=== PATIENT | male | born 1985 | race Caucasian/White ===

== ENCOUNTER 2017-02-05 22:48 | Emergency (ER) | payer SELFPAY ==
--- NOTE | 2017-02-07 22:22 | ED CLINICAL REPORT ---
Clinical Report - Physicians/Mid Levels [facility] [address] [place] [address] 02/05/2017 22:50 Patient: MARY HENDERSON Time Seen: 23:30 Feb 05 2017. Arrived- By private vehicle. Historian- patient. CPT: ER phys charges level 3 (#[id number]). HISTORY OF PRESENT ILLNESS Chief Complaint: RIGHT TESTICULAR PAIN. Is still present. The problem is described as moderate. The patient has had testicular pain. Sexual history is noncontributory. Similar symptoms previously: None. Recent medical care: Not recently seen/assessed. REVIEW OF SYSTEMS No fever, chills, flank pain, hematuria or abdominal pain. No vomiting, joint pain or skin rash. All systems otherwise negative, except as recorded above. PAST HISTORY No history of epididymitis or prostatitis. Problems: no known problems. Additional Surgeries: no known surgeries. Medications: None. Allergies: No Known Drug Allergy. SOCIAL HISTORY Heavy tobacco smoker (cigarette)- 1 pack per day. History of drug use: methamphetamines. No alcohol use. ADDITIONAL NOTES The nursing notes have been reviewed. PHYSICAL EXAM Vital Signs: 02/05/2017 23:05 BP: 133/73. HR: 105. RR: 16. O2 saturation: 98%. Temp: 99.3 F. Pain level now: 10/10. Appearance: Alert. Appears to be in pain. Patient in moderate distress. : Moderate right-sided scrotal swelling with tenderness. Moderate tenderness of the right testicle. Skin: Skin warm. No rash. Neuro: Oriented X 3. PROGRESS AND PROCEDURES Course of Care: 00:45 02/06/17. US arrived to do exam and patient refused exam and decided he was going to leave. I asked why , he would not respond. Put on his clothes and walked out of the ER. Pt would not wait to hear the AMA warnings. Patient/family counseled. CLINICAL IMPRESSION Right testicular pain and swelling unclear etiology Left AMA. (Electronically signed by Kirit Vásquez MD 02/07/2017 13:01)
--- NOTE | 2017-02-07 22:22 | ED MED RECONCILIATION SUMMARY ---
Patient: MARY HENDERSON Medication Reconciliation Report [facility] VisitID: [id number] [address] [place] [address] 31y, M Registration Date/Time: 02/05/2017 Weight: 63.5 kg Height/Length: 71 in. BMI: 19.5 ALLERGIES: No Known Drug Allergy The patient's Home Medications are listed below: NONE. The source(s) of the original Home Medication information: patient The following Medications were given to the patient in the Emergency Department: None. The following Medications were prescribed to the patient: None.
--- NOTE | 2017-02-07 22:22 | ED MED RECONCILIATION SUMMARY ---
Patient: MARY HENDERSON Medication Reconciliation Report [facility] VisitID: [id number] [address] [place] [address] 31y, M Registration Date/Time: 02/05/2017 Weight: 63.5 kg Height/Length: 71 in. BMI: 19.5 ALLERGIES: No Known Drug Allergy The patient's Home Medications are listed below: NONE. The source(s) of the original Home Medication information: patient The following Medications were given to the patient in the Emergency Department: None. The following Medications were prescribed to the patient: None.
--- NOTE | 2017-02-07 22:22 | ED ORDER SUMMARY ---
..... Patient: MARY HENDERSON OrderSheet [facility] VisitID: [id number] [address] [place] [address] 31y, M Registration Date/Time: 02/05/2017 ORDER SHEET Weight: 63.5 kg (stated) Allergies: No Known Drug Allergy GENERAL ORDERS: UA-Culture if indicated Urgent (23:28 02/05/2017 Isabel DanielNParth verbal order read back to Andres BARRETT) (Ack 23:39 Kendrick) (23:46 DDavis R.N.) Urine Drug Screen Urgent (23:29 02/05/2017 Isabel Powell verbal order read back to Andres BARRETT) (Ack 23:39 Kendrick) (23:46 DDavis R.N.) US Scrotum/Testicular (right side) Urgent (23:34 02/05/2017 Andres BARRETT) (Ack 23:39 Clarkeimagilma) (Cancelled: Patient Refusal0:48 Venkataekimana) MEDICATION ORDERS: IV FLUIDS: ORDER SHEET NOTES: [Electronically signed by Kirit Vásquez MD (13:01 02/07/2017)] [Electronically signed by Chadd Triana R.N. (22:22 02/07/2017)] [Electronically locked/signed by Chadd Triana R.N. (22:22 02/07/2017)]
--- NOTE | 2017-02-07 22:22 | ED MAR SUMMARY ---
..... Medication Administration Record [facility] [address], [place] [id number] Patient: MARY HENDERSON Visit ID: [id number] 31y, M Weight: 63.5 kg Height/Length: 71 in BMI: 19.5 ALLERGIES: No Known Drug Allergy
--- NOTE | 2017-02-07 22:22 | ED MAR SUMMARY ---
..... Medication Administration Record [facility] [address] [place], [place] [id number] Patient: MARY HENDERSON Visit ID: [id number] 31y, M Weight: 63.5 kg Height/Length: 71 in BMI: 19.5 ALLERGIES: No Known Drug Allergy
--- NOTE | 2017-02-07 22:22 | ED DISCHARGE INSTRUCTIONS ---
Patient: MARY HENDERSON General Instructions [facility] VisitID: [id number] [address] [place] [address] 31y, M Registration Date/Time: 02/05/2017 Right testicular pain and swelling unclear etiology Left AMA. (Electronically signed by Kirit Vásquez MD 02/07/2017 13:01)
--- NOTE | 2017-02-07 22:22 | ED DISCHARGE INSTRUCTIONS ---
Patient: MARY HENDERSON General Instructions [facility] VisitID: [id number] [address] [place] [address] 31y, M Registration Date/Time: 02/05/2017 Right testicular pain and swelling unclear etiology Left AMA. (Electronically signed by Kirit Vásquez MD 02/07/2017 13:01)
--- NOTE | 2017-02-07 22:22 | ED NURSING NOTES ---
Clinical Report - Nurses [facility] [address] [place] [address] 02/05/2017 22:50 Patient: MARY HENDERSON TRIAGE Triage time 23:00 Feb 05 2017. Acuity: LEVEL 3. Chief Complaint: URINARY RETENTION and TESTICULAR PAIN. Alert. DILIP COMA SCORE: Dilip Coma Scale: 15- eyes open spontaneously (4); best verbal response- oriented x 4 (5); best motor response- obeys commands (6). --23:21 Lam Bailye R.N. 23:05 02/05/17. BP: 133/73. HR: 105. RR: 16. O2 saturation: 98% on room air. Temp: 99.3 F (oral). Pain level now: 10/10. Additional comments: Scrotal Pain. --23:21 Lam Bailey R.N. Weight: 63.5 kg stated. Height/Length: 71 inches Per Patient. BMI: 19.5. --23:15 Lam Bailey R.N. Medications None. --23:19 Lam Bailey R.N. Medication/allergy information source: the patient. --23:21 Lam Bailey R.N. Allergies No Known Drug Allergy. --23:19 Lam Bailey R.N. History Arrived by private vehicle. Historian: patient. Accompanied by family. ( (R) Testicular Pain with urinary retention). This started yesterday. He has had testicular pain, involving the right testicle. Treatment PHARMACY AFFAIRS ASSISTANT: None. PAST MEDICAL HX: Negative. Immunizations: status is unknown. SURGERY HX: No history of previous surgery. SOCIAL HX: Heavy tobacco smoker (cigarette)- less than 1 pack per day. History of drug use: methamphetamines, marijuana. (last used meth earlier today). No alcohol use. No infectious disease exposure. ABUSE ASSESSMENT: No report of abuse. FALL RISK ASSESSMENT: Fall risk assessment completed. No fall risk identified. NUTRITIONAL RISK ASSESSMENT: The nutritional risk assessment revealed no deficiencies. FUNCTIONAL ASSESSMENT: Functional assessment: no impairments noted. LEARNING NEEDS ASSESSMENT: The learning needs assessment revealed no barriers. SKIN INTEGRITY ASSESSMENT: Skin integrity risk assessment completed. No skin integrity risk identified. --23:21 Lam Bailey R.N. PROBLEMS: no known problems. ADDITIONAL SURGERIES: no known surgeries. Interventions ID band on patient. To treatment room. --23:21 Lam Bailey R.N. PHYSICAL ASSESSMENT Ambulatory to room. GENERAL / NEURO / PSYCH: Alert. Oriented X 4. HEENT: Mucous membranes are pink. RESPIRATORY: Respirations not labored. CVS: Cardiac rhythm: sinus tachycardia. Capillary refill less than 2 seconds. GI / : Abdomen soft. SKIN: Skin is warm and dry. --23:22 Lam Bailey R.N. NURSING PROGRESS NOTES Monitoring of patient in place. Patient gowned. Reassurance given. Call light placed in reach. Side rails up x 1. Bed placed in lowest position. Brakes of bed on. Patient placed in chair. Brakes of chair on. Patient ready for evaluation- chart flagged and ED physician notified. --23:22 Lam Bailey R.N. ( I was notified by Doctor Vásquez that the patient was getting dressed and preparing to leave when the chemical lab technician arrived from the ultrasound exam. Dr Vásquez spoke with the patient, but states that the patient refused additional testing and refused prescription pain medications. The patient left without receiving paperwork and without signing an AMA form. The patient had already left when I was informed of the patient's situation and departure.). --00:59 Chadd Triana R.N. DISPOSITION / DISCHARGE Departure time: 00:50. Condition at departure: unchanged. The patient eloped and the patient left prior to discharge education being provided. The patient left the Emergency Department against medical advice and without completion of treatment; patient was accompanied by a top icer. The patient appears to be oriented x4 and uncooperative. The patient stated is leaving the ED due to the long waiting time. Notified the ED physician and charge nurse of patient departure. Patient left without signing form prior to leaving. He left the Emergency Department ambulatory and via private vehicle. ( Dr. Vásquez and the chemical lab technician were the only point of contact with the patient at the time of his departure.). --01:01 Chadd Triaan R.N. Locked/Released at 02/07/2017 22:22 by Chadd Triana R.N.
--- NOTE | 2017-02-07 22:22 | ED NURSING NOTES ---
Clinical Report - Nurses [facility] [address] [place] [address] 02/05/2017 22:50 Patient: MARY HENDERSON TRIAGE Triage time 23:00 Feb 05 2017. Acuity: LEVEL 3. Chief Complaint: URINARY RETENTION and TESTICULAR PAIN. Alert. DILIP COMA SCORE: Dilip Coma Scale: 15- eyes open spontaneously (4); best verbal response- oriented x 4 (5); best motor response- obeys commands (6). --23:21 Lam Bailey R.N. 23:05 02/05/17. BP: 133/73. HR: 105. RR: 16. O2 saturation: 98% on room air. Temp: 99.3 F (oral). Pain level now: 10/10. Additional comments: Scrotal Pain. --23:21 Lam Bailey R.N. Weight: 63.5 kg stated. Height/Length: 71 inches Per Patient. BMI: 19.5. --23:15 Lam Bailey R.N. Medications None. --23:19 Lam Bailey R.N. Medication/allergy information source: the patient. --23:21 Lam Bailey R.N. Allergies No Known Drug Allergy. --23:19 Lam Bailey R.N. History Arrived by private vehicle. Historian: patient. Accompanied by family. ( (R) Testicular Pain with urinary retention). This started yesterday. He has had testicular pain, involving the right testicle. Treatment BENDING MACHINE OPERATOR: None. PAST MEDICAL HX: Negative. Immunizations: status is unknown. SURGERY HX: No history of previous surgery. SOCIAL HX: Heavy tobacco smoker (cigarette)- less than 1 pack per day. History of drug use: methamphetamines, marijuana. (last used meth earlier today). No alcohol use. No infectious disease exposure. ABUSE ASSESSMENT: No report of abuse. FALL RISK ASSESSMENT: Fall risk assessment completed. No fall risk identified. NUTRITIONAL RISK ASSESSMENT: The nutritional risk assessment revealed no deficiencies. FUNCTIONAL ASSESSMENT: Functional assessment: no impairments noted. LEARNING NEEDS ASSESSMENT: The learning needs assessment revealed no barriers. SKIN INTEGRITY ASSESSMENT: Skin integrity risk assessment completed. No skin integrity risk identified. --23:21 Lam Bailey R.N. PROBLEMS: no known problems. ADDITIONAL SURGERIES: no known surgeries. Interventions ID band on patient. To treatment room. --23:21 Lam Bailey R.N. PHYSICAL ASSESSMENT Ambulatory to room. GENERAL / NEURO / PSYCH: Alert. Oriented X 4. HEENT: Mucous membranes are pink. RESPIRATORY: Respirations not labored. CVS: Cardiac rhythm: sinus tachycardia. Capillary refill less than 2 seconds. GI / : Abdomen soft. SKIN: Skin is warm and dry. --23:22 Lam Bailey R.N. NURSING PROGRESS NOTES Monitoring of patient in place. Patient gowned. Reassurance given. Call light placed in reach. Side rails up x 1. Bed placed in lowest position. Brakes of bed on. Patient placed in chair. Brakes of chair on. Patient ready for evaluation- chart flagged and ED physician notified. --23:22 Lma Bailey R.N. ( I was notified by Doctor Vásquez that the patient was getting dressed and preparing to leave when the plant and maintenance technician arrived from the ultrasound exam. Dr Vásquez spoke with the patient, but states that the patient refused additional testing and refused prescription pain medications. The patient left without receiving paperwork and without signing an AMA form. The patient had already left when I was informed of the patient's situation and departure.). --00:59 Chadd Triana R.N. DISPOSITION / DISCHARGE Departure time: 00:50. Condition at departure: unchanged. The patient eloped and the patient left prior to discharge education being provided. The patient left the Emergency Department against medical advice and without completion of treatment; patient was accompanied by a dynamometer repairer. The patient appears to be oriented x4 and uncooperative. The patient stated is leaving the ED due to the long waiting time. Notified the ED physician and charge nurse of patient departure. Patient left without signing form prior to leaving. He left the Emergency Department ambulatory and via private vehicle. ( Dr. Vásquez and the plant and maintenance technician were the only point of contact with the patient at the time of his departure.). --01:01 Chadd Triana R.N. Locked/Released at 02/07/2017 22:22 by Chadd Triana R.N.
--- NOTE | 2017-02-07 22:22 | ED ORDER SUMMARY ---
..... Patient: MARY HENDERSON OrderSheet [facility] VisitID: [id number] [address] [place] [address] 31y, M Registration Date/Time: 02/05/2017 ORDER SHEET Weight: 63.5 kg (stated) Allergies: No Known Drug Allergy GENERAL ORDERS: UA-Culture if indicated Urgent (23:28 02/05/2017 Isabel DanielNParth verbal order read back to Andres BARRETT) (Ack 23:39 Kendrick) (23:46 DDavis R.N.) Urine Drug Screen Urgent (23:29 02/05/2017 Isabel Powell verbal order read back to Andres BARRETT) (Ack 23:39 Kendrick) (23:46 DDavis R.N.) US Scrotum/Testicular (right side) Urgent (23:34 02/05/2017 Andres BARRETT) (Ack 23:39 Clarkeimagilma) (Cancelled: Patient Refusal0:48 Venkataekimana) MEDICATION ORDERS: IV FLUIDS: ORDER SHEET NOTES: [Electronically signed by Kirit Vásquez MD (13:01 02/07/2017)] [Electronically signed by Chadd Triana R.N. (22:22 02/07/2017)] [Electronically locked/signed by Chadd Triana R.N. (22:22 02/07/2017)]
--- NOTE | 2017-02-07 22:22 | ED CLINICAL REPORT ---
Clinical Report - Physicians/Mid Levels [facility] [address] [place] [address] 02/05/2017 22:50 Patient: MARY HENDERSON Time Seen: 23:30 Feb 05 2017. Arrived- By private vehicle. Historian- patient. CPT: ER phys charges level 3 (#[id number]). HISTORY OF PRESENT ILLNESS Chief Complaint: RIGHT TESTICULAR PAIN. Is still present. The problem is described as moderate. The patient has had testicular pain. Sexual history is noncontributory. Similar symptoms previously: None. Recent medical care: Not recently seen/assessed. REVIEW OF SYSTEMS No fever, chills, flank pain, hematuria or abdominal pain. No vomiting, joint pain or skin rash. All systems otherwise negative, except as recorded above. PAST HISTORY No history of epididymitis or prostatitis. Problems: no known problems. Additional Surgeries: no known surgeries. Medications: None. Allergies: No Known Drug Allergy. SOCIAL HISTORY Heavy tobacco smoker (cigarette)- 1 pack per day. History of drug use: methamphetamines. No alcohol use. ADDITIONAL NOTES The nursing notes have been reviewed. PHYSICAL EXAM Vital Signs: 02/05/2017 23:05 BP: 133/73. HR: 105. RR: 16. O2 saturation: 98%. Temp: 99.3 F. Pain level now: 10/10. Appearance: Alert. Appears to be in pain. Patient in moderate distress. : Moderate right-sided scrotal swelling with tenderness. Moderate tenderness of the right testicle. Skin: Skin warm. No rash. Neuro: Oriented X 3. PROGRESS AND PROCEDURES Course of Care: 00:45 02/06/17. US arrived to do exam and patient refused exam and decided he was going to leave. I asked why , he would not respond. Put on his clothes and walked out of the ER. Pt would not wait to hear the AMA warnings. Patient/family counseled. CLINICAL IMPRESSION Right testicular pain and swelling unclear etiology Left AMA. (Electronically signed by Kirit Vásquez MD 02/07/2017 13:01)
== END 2017-02-06 00:50 | disposition left against medical advice (07) ==
LOC: ED SRH 22:48
DX: N50.811 Right testicular pain (principal); N50.89 Other specified disorders of the male genital organs; F17.210 Nicotine dependence, cigarettes, uncomplicated
CPT/HCPCS: 90004; 90469; 90939; 92760; 92761; 92762; 92763; 92764; 92765; 92766; 92767